=== PATIENT | male | born 2000 | race African-American/Black ===

== ENCOUNTER 2022-08-22 10:55 | Emergency (ER) | payer OTHER ==
[~2022-08-22] VITALS: Ht 182.9 cm; Wt 69.4 kg
[2022-08-22 11:01] VITALS: BP_SYST 131
[2022-08-22] MEDS ORDERED: IBUP-1969 PO (11:33)
[2022-08-22 12:23] VITALS: BP_SYST 123
== END 2022-08-22 11:56 | disposition home or self-care (01) ==
LOC: SED 10:55
DX: R07.89 Other chest pain (principal); F12.90 Cannabis use, unspecified, uncomplicated; Z79.899 Other long term (current) drug therapy
CPT/HCPCS: 93005; 99283